=== PATIENT | female | born 1975 | race Two or more races ===

== ENCOUNTER 2016-12-21 22:31 | Emergency (ER) | payer SELFPAY ==
[~2016-12-21] VITALS: Ht 154.9 cm; Wt 81.6 kg
[2016-12-21 22:58] VITALS: BP 128/78
[2016-12-22] MEDS ORDERED: HYDROcodone-ACET 10/325MG TAB PO ONE (01:30)
[2016-12-22] MEDS ORDERED: KETOROLAC TROMETH 60MG/2ML VIAL IM ONE (01:30)
== END 2016-12-22 01:54 | disposition home or self-care (01) ==
LOC: ER 22:31
DX: K08.89 Other specified disorders of teeth and supporting structures (principal)
CPT/HCPCS: 96372; 99283; J1885